=== PATIENT | male | born 1955 | race Caucasian/White ===

== ENCOUNTER 2018-05-25 17:06 | Emergency (ER) | payer MEDICAID ==
--- NOTE | 2018-05-25 18:09 | ED Physician Chart ---
ED Chief Complaint/HPI - Patient Information Date Seen:: 05/25/18 Time Seen:: 18:00 Chief Complaint:: altered level consciousness History of Present Illness:: Patient was found sleeping in front of a business. Patient drank 2 pints of vodka today. Patient complains of sore throat from vomiting and nausea. Allergies:: Allergies Allergy/AdvReac Type Severity Reaction Status Date / Time No Known Allergies Allergy Verified 05/25/18 17:40 Vitals:: Vital Signs - 8 hr 05/25/18 17:40 Temp 98.5 F HR 85 RR 16 BP 128/79 O2 Sat % 95 Historian:: Patient Review:: Nurse's Note Reviewed ED Review of Systems - Review of Systems General/Constitutional: No fever, No chills, No weight loss, No weakness, No diaphoresis, No edema, No loss of appetite Skin: No skin lesions, No rash, No bruising Head: No headache, No light-headedness Eyes: No loss of vision, No pain, No diplopia ENT: No earache, No nasal drainage, Sore throat, No tinnitus Neck: No neck pain, No swelling, No thyromegaly, No stiffness, No mass noted Cardio Vascular: No chest pain, No palpitations, No PND, No orthopnea, No edema Pulmonary: No SOB, No cough, No sputum, No wheezing GI: Nausea, No vomiting, No diarrhea, No pain, No melena, No hematochezia, No constipation, No hematemesis G/U: No dysuria, No frequency, No hematuria Musculoskeletal: No bone or joint pain, No back pain, No muscle pain Endocrine: No polyuria, No polydipsia Psychiatric: No prior psych history, No depression, No anxiety, No suicidal ideation Hematopoietic: No bruising, No lymphadenopathy Allergic/Immuno: No urticaria, No angioedema Neurological: No syncope, No focal symptoms, No weakness, No paresthesia, No headache, No seizure, No dizziness, No confusion, No vertigo ED Past Medical History - Past Medical History Past Medical History: Asthma/COPD Family History: Heart disease, Diabetes Melitus, HTN Social History: Non Smoker, Alcohol Surgical History: Hernia Psychiatricy History: None Medication: None Family Medical History - Family Member Mother History Unknown: Yes ED Physical Exam - Physical Examination General/Constitutional: Awake, Well-developed, well-nourished, Alert, No distress, GCS 15, Non-toxic appearing, Ambulatory Head: Atraumatic Eyes: Lids, conjuctiva normal, PERRL, EOMI Skin: Nl inspection, No rash, No skin lesions, No ecchymosis, Well hydrated, No lymphadenopathy ENMT: External ears, nose nl, Nasal exam nl, Lips, teeth, gums nl Neck: Nontender, Full ROM w/o pain, No JVD, No nuchal rigidity, No bruit, No mass, No stridor Respiratory: Nl effort/Exclusion, Clear to Auscultation, No Wheeze/Rhonchi/Rales Cardio Vascular: RRR, No murmur, gallop, rubs, NL S1 S2 GI: No organomegaly, No hernia, Normal BS's, Nondistended, No mass/bruits, No McBurney tenderness Other GI comments:: Epigastric tenderness : No CVA tenderness Extremities: No tenderness or effusion, Full ROM, normal strength in all extremities, No edema, Normal digits & nails Neuro/Psych: Alert/oriented, DTR's symmetric, Normal sensory exam, Normal motor strength, Judgement/insight normal, Mood normal, Normal gait, No focal deficits Misc: Normal back, No paraspinal tenderness ED Labs/Radiology/EKG Results - Lab Results Results: Abnormal Lab Results 05/25/18 18:32 Lipase 45 Ethyl Alcohol 287 H ED Septic Shock - . Is Septic Shock (SBP<90, OR Lactate>4 mmol\L) present?: No - <6hrs of presentation: Vital Signs: Vital Signs - 8 hr 05/25/18 17:40 Temp 98.5 F HR 85 RR 16 BP 128/79 O2 Sat % 95 ED Reassessment (Disposition) - Reassessment Reassessment Condition:: Unchanged - Diagnosis Diagnosis:: Acute alcohol intoxication; chronic alcohol abuse - Aftercare/Follow up Instructions Aftercare/Follow-Up Instructions:: Refer to Discharge Instructions - Patient Disposition Discharge/Transfer:: Home Condition at Disposition:: Stable, Improved
[2018-05-25 19:07] LABS: LIPASE 45 U/L (11-82)
== END 2018-05-26 06:15 | disposition home or self-care (01) ==
LOC: ER 17:06
DX: F10.129 Alcohol abuse with intoxication, unspecified (principal); J44.9 Chronic obstructive pulmonary disease, unspecified; Z98.890 Other specified postprocedural states; Y90.8 Blood alcohol level of 240 mg/100 ml or more
CPT/HCPCS: 36415-UA; 80320-TC; 83690-TC; Z7502

== ENCOUNTER 2018-06-12 14:55 | Emergency (ER) | payer MEDICAID ==
[2018-06-12] MEDS ORDERED: Haloperidol Lactate 5 mg/mL 1mL Vial ONE (15:23)
[2018-06-12] MEDS: Haloperidol Lactate 5 mg/mL 1mL Vial IVP ONE (15:25)
[2018-06-12 15:45] LABS: URINE SOURCE CLEAN C
[2018-06-12 15:46] LABS: EOSINOPHILE ABSOLUTE 0.2 Th/cmm (0.1-0.4); HEMATOCRIT 46.7 % (41.0-60); HEMOGLOBIN 15.7 gm/dL (12-16); LYMPHOCYTE ABSOLUTE 2.3 Th/cmm (1.5-3.0); MEAN CELL VOLUME 94.9 fl (80-99); MEAN CORPUSCULAR HEMOGLOBIN 31.9 pg (26.0-30.0); MEAN CORPUSCULAR HGB CONC 33.6 pg (28.0-36.0); MEAN PLATELET VOLUME 6.8 fl; NEUTROPHILE ABSOLUTE 2.2 Th/cmm (1.8-8.0); PLATELET COUNT 309 Th/cmm (150-400); RED BLOOD COUNT 4.92 Mil/cmm (4.30-5.70); RED CELL DISTRIBUTION WIDTH 12.7 % (11.5-20.0); WHITE BLOOD COUNT 5.7 Th/cmm (4.8-10.8)
[2018-06-12 15:47] LABS: % BASOPHILS 0.8 % (0.0-2.0); % EOSINOPHILS 2.9 % (0.0-5.0); % LYMPHOCYTES 40.5 % (20.0-50.0); % NEUTROPHILS 37.8 % (40.0-80.0)
[2018-06-12 15:56] LABS: URINE BILIRUBIN NEGATIVE (NEGATIVE); URINE BLOOD NEGATIVE (NEGATIVE); URINE GLUCOSE (UA) NEGATIVE (NEGATIVE); URINE KETONE NEGATIVE (NEGATIVE); URINE LEUKOCYTE ESTERASE NEGATIVE (NEGATIVE); URINE NITRATE NEGATIVE (NEGATIVE); URINE PH 5.5 (4.6 - 8.0); URINE PROTEIN NEGATIVE (NEGATIVE); URINE UROBILINOGEN 0.2 E.U./dL (0.2 - 1.0)
[2018-06-12 15:57] LABS: URINE CLARITY CLEAR (CLEAR); URINE COLOR YELLOW; URINE MICROSCOPIC INDICATED? YES
[2018-06-12 15:59] LABS: INR 0.96 (0.5-1.4)
[2018-06-12 16:03] LABS: AMPHETAMINE URINE POSITIVE (NEGATIVE); BARBITURATES URINE NEGATIVE (NEGATIVE); BENZODIAZEPINES QUAL URINE NEGATIVE (NEGATIVE); CANNABINOID THC POSITIVE (NEGATIVE); COCAINE METABOLITE QUAL URINE NEGATIVE (NEGATIVE); METHADONE URINE NEGATIVE (NEGATIVE); METHAMPHETAMINES QUAL URINE NEGATIVE (NEGATIVE); OPIATES (MORPHINE) QUAL. URINE NEGATIVE (NEGATIVE); PHENCYCLIDINE (PCP) URINE NEGATIVE (NEGATIVE); TRICYCLICS (TCA) QUAL. URINE NEGATIVE (NEGATIVE)
[2018-06-12 16:07] LABS: URINE BACTERIA FEW /hpf (NONE SEEN); URINE EPITHELIAL CELLS FEW /lpf (FEW); URINE RBC NONE SEEN /hpf (0-5); URINE WBC 0-2 /hpf (0-5)
[2018-06-12 16:07] LABS: ALB/GLOB RATIO 1.4 (1.0-1.8); ALBUMIN 3.8 gm/dL (4.2-5.5); ALKALINE PHOSPHATASE 71 U/L (34-104); ANION GAP 13.5 (7.0-16.0); BILIRUBIN,TOTAL 0.4 mg/dL (0.3-1.0); BUN - UREA NITROGEN 14 mg/dL (7-25); CALCIUM SERUM 9.2 mg/dL (8.6-10.3); CARBON DIOXIDE 24.7 mEq/L (21.0-31.0); CHLORIDE 102 mEq/L (98-107); CREATININE - SERUM 0.9 mg/dL (0.7-1.3); GFR AFRICAN-AMERICAN > 60.0 ml/min (>90); GFR NON AFRICAN-AMERICAN > 60.0 ml/min; GLUCOSE 92 mg/dL (70-105); POTASSIUM SERUM 3.2 mEq/L (3.5-5.1); SGOT 197 U/L (13-39); SGPT/ALT 203 U/L (7-52); SODIUM SERUM 137 mEq/L (136-145); TOTAL PROTEIN,SERUM 6.6 gm/dL (6.0-8.3)
--- NOTE | 2018-06-12 16:19 | ED Physician Chart ---
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 Allergies:: Allergies Allergy/AdvReac Type Severity Reaction Status Date / Time No Known Allergies Allergy Verified 06/12/18 15:15 Vitals:: Vital Signs - 8 hr 06/12/18 15:17 Temp 97.8 F HR 75 RR 18 BP 116/80 O2 Sat % 100 Historian:: EMS, Medical Records Review:: Nurse's Note Reviewed, Old Chart Reviewed ED Review of Systems - Review of Systems General/Constitutional: No fever, No chills, No weight loss, No weakness, No diaphoresis, No edema, No loss of appetite, Other (PATIENT IS UNABLE TO GIVE A REVIEW OF SYSTEMS) Skin: No skin lesions, No rash, No bruising Head: No headache, No light-headedness Eyes: No loss of vision, No pain, No diplopia ENT: No earache, No nasal drainage, No sore throat, No tinnitus Neck: No neck pain, No swelling, No thyromegaly, No stiffness, No mass noted Cardio Vascular: No chest pain, No palpitations, No PND, No orthopnea, No edema Pulmonary: No SOB, No cough, No sputum, No wheezing GI: No nausea, No vomiting, No diarrhea, No pain, No melena, No hematochezia, No constipation, No hematemesis G/U: No dysuria, No frequency, No hematuria Musculoskeletal: No bone or joint pain, No back pain, No muscle pain Endocrine: No polyuria, No polydipsia Psychiatric: No prior psych history, No depression, No anxiety, No suicidal ideation Hematopoietic: No bruising, No lymphadenopathy Allergic/Immuno: No urticaria, No angioedema Neurological: No syncope, No focal symptoms, No weakness, No paresthesia, No headache, No seizure, No dizziness, No confusion, No vertigo ED Past Medical History - Past Medical History Obtainable: Yes Past Medical History: Other (ALCOHOL ABUSE) Family History: None Social History: Non Smoker, Alcohol, No Drug Use, Homeless Surgical History: Hernia Medication: Reviewed Family Medical History - Family Member Mother History Unknown: Yes ED Physical Exam - Physical Examination General/Constitutional: Awake, Well-developed, well-nourished, Alert, No distress, GCS 15, Ambulatory Other Gen/Cons comments:: LOOKS INTOXICATED AND VERY UNCOOPERATIVE WITH THE SMELL OF ALCOHOL NOTED Head: Atraumatic Eyes: Lids, conjuctiva normal, PERRL, EOMI Skin: Nl inspection, No rash, No skin lesions, No ecchymosis, Well hydrated, No lymphadenopathy ENMT: External ears, nose nl, Nasal exam nl, Lips, teeth, gums nl Neck: Nontender, Full ROM w/o pain, No JVD, No nuchal rigidity, No bruit, No mass, No stridor Respiratory: Nl effort/Exclusion, Clear to Auscultation, No Wheeze/Rhonchi/Rales Cardio Vascular: RRR, No murmur, gallop, rubs, NL S1 S2 GI: No tenderness/rebounding/guarding, No organomegaly, No hernia, Normal BS's, Nondistended, No mass/bruits, No McBurney tenderness : No CVA tenderness Extremities: No tenderness or effusion, Full ROM, normal strength in all extremities, No edema, Normal digits & nails Neuro/Psych: Alert/oriented, DTR's symmetric, Normal sensory exam, Normal motor strength, Judgement/insight normal, Mood normal, Normal gait, No focal deficits Misc: Normal back, No paraspinal tenderness ED Labs/Radiology/EKG Results - Lab Results Results: Laboratory Tests 06/12/18 06/12/18 06/12/18 15:35 15:35 15:35 WBC 5.7 RBC 4.92 Hgb 15.7 Hct 46.7 MCV 94.9 MCH 31.9 H MCHC Differential 33.6 RDW 12.7 Plt Count 309 MPV 6.8 Neutrophils % 37.8 L Lymphocytes % 40.5 Monocytes % 18.0 H Eosinophils % 2.9 Basophils % 0.8 PT 10.0 INR 0.96 PTT (Actin FS) 26.2 Sodium 137 Potassium 3.2 L Chloride 102 Carbon Dioxide 24.7 Anion Gap 13.5 BUN 14 Creatinine 0.9 Est GFR ( Amer) > 60.0 Est GFR (Non-Af Amer) > 60.0 BUN/Creatinine Ratio 15.6 Glucose 92 Calcium 9.2 Total Bilirubin 0.4 AST 197 H ALT 203 H Alkaline Phosphatase 71 Troponin I Total Protein 6.6 Albumin 3.8 L Globulin 2.8 Albumin/Globulin Ratio 1.4 Urine Source Urine Color Urine Clarity Urine pH Ur Specific [place] Urine Protein Urine Glucose (UA) Urine Ketones Urine Blood Urine Nitrate Urine Bilirubin Urine Urobilinogen Ur Leukocyte Esterase Urine RBC Urine WBC Ur Epithelial Cells Urine Bacteria Urine Opiates Screen Urine Methadone Screen Ur Barbiturates Screen Ur Tricyclics Screen Ur Phencyclidine Scrn Amphetamines Screen U Methamphetamines Scrn U Benzodiazepines Scrn U Cocaine Metab Screen U Cannabinoids Screen Ethyl Alcohol 344 H 06/12/18 06/12/18 06/12/18 15:35 15:36 15:36 WBC RBC Hgb Hct MCV MCH MCHC Differential RDW Plt Count MPV Neutrophils % Lymphocytes % Monocytes % Eosinophils % Basophils % PT INR PTT (Actin FS) Sodium Potassium Chloride Carbon Dioxide Anion Gap BUN Creatinine Est GFR ( Amer) Est GFR (Non-Af Amer) BUN/Creatinine Ratio Glucose Calcium Total Bilirubin AST ALT Alkaline Phosphatase Troponin I < 0.01 L Total Protein Albumin Globulin Albumin/Globulin Ratio Urine Source CLEAN C Urine Color YELLOW Urine Clarity CLEAR Urine pH 5.5 Ur Specific Canadian <= 1.005 Urine Protein NEGATIVE Urine Glucose (UA) NEGATIVE Urine Ketones NEGATIVE Urine Blood NEGATIVE Urine Nitrate NEGATIVE Urine Bilirubin NEGATIVE Urine Urobilinogen 0.2 Ur Leukocyte Esterase NEGATIVE Urine RBC NONE SEEN Urine WBC 0-2 Ur Epithelial Cells FEW Urine Bacteria FEW Urine Opiates Screen NEGATIVE Urine Methadone Screen NEGATIVE Ur Barbiturates Screen NEGATIVE Ur Tricyclics Screen NEGATIVE Ur Phencyclidine Scrn NEGATIVE Amphetamines Screen POSITIVE H U Methamphetamines Scrn NEGATIVE U Benzodiazepines Scrn NEGATIVE U Cocaine Metab Screen NEGATIVE U Cannabinoids Screen POSITIVE H Ethyl Alcohol ED Assessment - Assessment General Assessment: ALCOHOL INTOXICATION ED Septic Shock - . Is Septic Shock (SBP<90, OR Lactate>4 mmol\L) present?: No - <6hrs of presentation: Vital Signs: Vital Signs - 8 hr 06/12/18 15:17 Temp 97.8 F HR 75 RR 18 BP 116/80 O2 Sat % 100 ED Reassessment (Disposition) - Diagnosis Diagnosis:: ALCOHOL INTOXICATION DRUG ABUSE (METH AND THC)
[2018-06-12] MEDS: Sodium Chloride 0.45% 1,000 ML IV ONE (16:43)
[2018-06-13] MEDS ORDERED: Potassium Chloride 20 mEq ER Tab PO ONE (06:20)
[2018-06-13] MEDS: Potassium Chloride 20 mEq ER Tab PO ONE (06:22)
== END 2018-06-13 08:00 | disposition home or self-care (01) ==
LOC: ER 14:55
DX: F10.129 Alcohol abuse with intoxication, unspecified (principal); F15.10 Other stimulant abuse, uncomplicated; F12.10 Cannabis abuse, uncomplicated; Z59.0 Homelessness; Z98.890 Other specified postprocedural states; Y90.8 Blood alcohol level of 240 mg/100 ml or more
CPT/HCPCS: 36415-UA; 80053-TC; 80307; 80320-TC; 81001-TC; 84484-TC; 85007-TC; 85025-TC; 85610-TC; 85730-TC; 96374; 96375; J1630; J2060; Z7502; Z7610

== ENCOUNTER 2018-07-01 19:12 | Emergency (ER) | payer MEDICAID ==
[2018-07-01] MEDS ORDERED: Haloperidol Lactate 5 mg/mL 1mL Vial IM STA (19:27)
[2018-07-01 19:46] LABS: HEMATOCRIT 44.7 % (41.0-60); HEMOGLOBIN 15.2 gm/dL (12-16); MEAN CELL VOLUME 93.7 fl (80-99); MEAN CORPUSCULAR HEMOGLOBIN 31.9 pg (26.0-30.0); MEAN PLATELET VOLUME 6.6 fl; PLATELET COUNT 357 Th/cmm (150-400); RED BLOOD COUNT 4.77 Mil/cmm (4.30-5.70); RED CELL DISTRIBUTION WIDTH 12.9 % (11.5-20.0); WHITE BLOOD COUNT 5.4 Th/cmm (4.8-10.8)
[2018-07-01] MEDS ORDERED: Haloperidol Lactate 5 mg/mL 1mL Vial ONE (19:58)
[2018-07-01 20:00] LABS: ALB/GLOB RATIO 1.4 (1.0-1.8); ALBUMIN 3.9 gm/dL (4.2-5.5); ALKALINE PHOSPHATASE 99 U/L (34-104); ANION GAP 17.6 (7.0-16.0); BILIRUBIN,TOTAL 0.3 mg/dL (0.3-1.0); BUN - UREA NITROGEN 12 mg/dL (7-25); CALCIUM SERUM 9.4 mg/dL (8.6-10.3); CARBON DIOXIDE 22.5 mEq/L (21.0-31.0); CHLORIDE 104 mEq/L (98-107); GFR AFRICAN-AMERICAN > 60.0 ml/min (>90); GFR NON AFRICAN-AMERICAN > 60.0 ml/min; GLUCOSE 133 mg/dL (70-105); POTASSIUM SERUM 3.1 mEq/L (3.5-5.1); SGOT 105 U/L (13-39); SGPT/ALT 127 U/L (7-52); SODIUM SERUM 141 mEq/L (136-145); TOTAL PROTEIN,SERUM 6.7 gm/dL (6.0-8.3)
[2018-07-01 20:03] LABS: INR 0.95 (0.5-1.4); PROTHROMBIN TIME (TEST) 9.9 SECONDS (9.5-11.5)
[2018-07-01] MEDS ORDERED: KCL 20mEq/100mL Premix 20 MEQ/100 ML PIGGYBACK IV ONE ×2 (20:16→20:37)
[2018-07-01 20:30] LABS: BAND NEUTROPHILE 0 % (0-10); BASOPHIL 0 % (0-3); EOSINOPHIL 4 % (0-5); LYMPHOCYTE 50 % (20-50); MONOCYTE 9 % (2-10); NEUTROPHILS 37 % (40-80)
[2018-07-02] MEDS ORDERED: Sodium Chloride 0.9% 1,000 ML IV ONE (02:29)
--- NOTE | 2018-07-02 06:31 | ED Physician Chart ---
ED Chief Complaint/HPI - Patient Information Date Seen:: 07/01/18 Time Seen:: 19:25 Chief Complaint:: alcohol intoxication History of Present Illness:: THIS IS A 62 YO MALE ALCOHOLIC WHO PRESENT WITH COMBATIVE BEHAVIOR AND UNCOOPERATIVE. HE IS UNKEPT AND SMELLS LIKE ALCOHOL. HE HAS BEEN IN THIS ER SEVERAL TIMES IN THE PAST. Allergies:: Allergies Allergy/AdvReac Type Severity Reaction Status Date / Time No Known Allergies Allergy Verified 06/12/18 15:15 Historian:: Medical Records Review:: Nurse's Note Reviewed, Old Chart Reviewed ED Review of Systems - Review of Systems General/Constitutional: No fever, No chills, No weight loss, No weakness, No diaphoresis, No edema, No loss of appetite, Other (THIS PATIENT IS UNABLE TO GIVE A REVIEW OF SYSTEMS.) Skin: No skin lesions, No rash, No bruising Head: No headache, No light-headedness Eyes: No loss of vision, No pain, No diplopia ENT: No earache, No nasal drainage, No sore throat, No tinnitus Neck: No neck pain, No swelling, No thyromegaly, No stiffness, No mass noted Cardio Vascular: No chest pain, No palpitations, No PND, No orthopnea, No edema Pulmonary: No SOB, No cough, No sputum, No wheezing GI: No nausea, No vomiting, No diarrhea, No pain, No melena, No hematochezia, No constipation, No hematemesis G/U: No dysuria, No frequency, No hematuria Musculoskeletal: No bone or joint pain, No back pain, No muscle pain Endocrine: No polyuria, No polydipsia Psychiatric: No prior psych history, No depression, No anxiety, No suicidal ideation Hematopoietic: No bruising, No lymphadenopathy Allergic/Immuno: No urticaria, No angioedema Neurological: No syncope, No focal symptoms, No weakness, No paresthesia, No headache, No seizure, No dizziness, No confusion, No vertigo ED Past Medical History - Past Medical History Obtainable: Yes Past Medical History: Other (ALCOHOLISM) Family History: None Social History: Smoker, Alcohol, Illicit Drug Use, Homeless Surgical History: None Psychiatricy History: Schizophrenia Medication: Reviewed Family Medical History - Family Member Mother History Unknown: Yes ED Physical Exam - Physical Examination General/Constitutional: Awake, Well-developed, well-nourished, Alert, No distress, GCS 15, Ambulatory Other Gen/Cons comments:: HE APPEARS INTOXICATED AND DISORIENTED TIMES FOUR. Head: Atraumatic Eyes: Lids, conjuctiva normal, PERRL, EOMI Skin: Nl inspection, No rash, No skin lesions, No ecchymosis, Well hydrated, No lymphadenopathy ENMT: External ears, nose nl, Nasal exam nl, Lips, teeth, gums nl Neck: Nontender, Full ROM w/o pain, No JVD, No nuchal rigidity, No bruit, No mass, No stridor Respiratory: Nl effort/Exclusion, Clear to Auscultation, No Wheeze/Rhonchi/Rales Cardio Vascular: RRR, No murmur, gallop, rubs, NL S1 S2 GI: No tenderness/rebounding/guarding, No organomegaly, No hernia, Normal BS's, Nondistended, No mass/bruits, No McBurney tenderness : No CVA tenderness Extremities: No tenderness or effusion, Full ROM, normal strength in all extremities, No edema, Normal digits & nails Neuro/Psych: Alert/oriented, DTR's symmetric, Normal sensory exam, Normal motor strength, Mood normal, Normal gait, No focal deficits Other Neuro/Psych comments:: POOR INSIGHT Misc: Normal back, No paraspinal tenderness ED Labs/Radiology/EKG Results - Lab Results Results: Laboratory Tests 07/01/18 07/01/18 07/01/18 19:38 19:38 19:38 WBC 5.4 RBC 4.77 Hgb 15.2 Hct 44.7 MCV 93.7 MCH 31.9 H MCHC Differential 34.0 RDW 12.9 Plt Count 357 MPV 6.6 Add Manual Diff YES Band Neutrophils % 0 Neutrophils (Manual) 37 L Lymphocytes 50 Monocytes 9 Eosinophils 4 Basophils 0 PT 9.9 INR 0.95 PTT (Actin FS) 27.0 Sodium 141 Potassium 3.1 L Chloride 104 Carbon Dioxide 22.5 Anion Gap 17.6 H BUN 12 Creatinine 1.0 Est GFR ( Amer) > 60.0 Est GFR (Non-Af Amer) > 60.0 BUN/Creatinine Ratio 12.0 Glucose 133 H Calcium 9.4 Total Bilirubin 0.3 AST 105 H ALT 127 H Alkaline Phosphatase 99 Troponin I Total Protein 6.7 Albumin 3.9 L Globulin 2.8 Albumin/Globulin Ratio 1.4 Ethyl Alcohol 384 H 07/01/18 19:38 WBC RBC Hgb Hct MCV MCH MCHC Differential RDW Plt Count MPV Add Manual Diff Band Neutrophils % Neutrophils (Manual) Lymphocytes Monocytes Eosinophils Basophils PT INR PTT (Actin FS) Sodium Potassium Chloride Carbon Dioxide Anion Gap BUN Creatinine Est GFR ( Amer) Est GFR (Non-Af Amer) BUN/Creatinine Ratio Glucose Calcium Total Bilirubin AST ALT Alkaline Phosphatase Troponin I 0.02 Total Protein Albumin Globulin Albumin/Globulin Ratio Ethyl Alcohol ED Assessment - Assessment General Assessment: ALCOHOL INTOXICATION ED Septic Shock - . Is Septic Shock (SBP<90, OR Lactate>4 mmol\L) present?: No ED Reassessment (Disposition) - Reassessment Reassessment Condition:: Improved - Diagnosis Diagnosis:: ALCOHOL INTOXICATION - Aftercare/Follow up Instructions Aftercare/Follow-Up Instructions:: Counseled pt regarding lab results/diagnosis & need follow up, Refer to Discharge Instructions, Counseled pt & family regarding lab results/diagnosis & need follow up - Patient Disposition Discharge/Transfer:: Home Condition at Disposition:: Improved
== END 2018-07-02 08:54 | disposition left against medical advice (07) ==
LOC: ER 19:12
DX: F10.129 Alcohol abuse with intoxication, unspecified (principal); F20.9 Schizophrenia, unspecified; F17.200 Nicotine dependence, unspecified, uncomplicated; Y90.8 Blood alcohol level of 240 mg/100 ml or more; Z59.0 Homelessness
CPT/HCPCS: 99283; 96365; 96372; 96375; 84484; 36415 ×2; 85007; 85025; 85610; 85730; 80320 ×2; 80053; J3480; J2060; J1630; J7030; Z7502